=== PATIENT | male | born 1955 | race Caucasian/White ===

== ENCOUNTER 2018-08-26 17:17 | Emergency (ER) | payer OTHER ==
[~2018-08-26] VITALS: Ht 188 cm; Wt 102.1 kg
[2018-08-26 17:38] VITALS: BP 122/78
[2018-08-26] MEDS ORDERED: KETOROLAC TROMETHAMINE INJ 30 MG/ML VIAL ONE (17:49)
[2018-08-26] MEDS ORDERED: KETOROLAC TROMETHAMINE INJ 60 MG/2 ML VIAL IM ONE (18:00)
== END 2018-08-26 18:40 ==
LOC: ER 17:18
DX: R10.31 Right lower quadrant pain (principal); R10.32 Left lower quadrant pain; R10.11 Right upper quadrant pain; R10.12 Left upper quadrant pain; Z76.5 Malingerer [conscious simulation]; Z87.442 Personal history of urinary calculi; Z60.2 Problems related to living alone
CPT/HCPCS: 71045; 96372; 99283; J1885